=== PATIENT | male | born 1955 | race Two or more races ===

== ENCOUNTER → 2020-07-18 | Outpatient (CLI) | payer OTHER ==
--- NOTE | 2020-07-18 15:55 | KCIC ---
Study: MRI of the right hand without contrast INDICATION: MCP joint sprain of the thumb. COMPARISON: 07/03/2020 radiographs TECHNIQUE: Multiplanar MR imaging of the right hand performed without contrast. FINDINGS: Bones/cartilage: No acute fracture involving the thumb or rest of the partially assessed hand. Alignm ent is within normal limits. No advanced arthrosis. Ligaments: Mild soft tissue edema of the thumb beginning along the dorsum of the distal thumb metacar pal and extending up to the distal phalanx. There are no findings to suggest a high-grade or full-thi ckness tear of the radial or ulnar collateral ligaments associated with the thumb MCP or IP joints. T he ligaments are seen to attach to the volar plate. No tendon displacement to suggest sagittal band o r martha rupture. Musculotendinous: Mildly heterogeneous signal of the flexor pollicis longus at the distal thumb metac arpal to the MCP joint could represent mild strain given minimal adjacent edema, image 20 series 7. N o focal tear of the extensor pollicis longus with a mild irregularity along the radial margin of the tendon at the level of the proximal phalanx, image 16 series 7, favored related to a small vessel or nerve when correlating with the axial T1 sequence. Miscellaneous: No joint effusion. IMPRESSION: 1. Mildly edematous soft tissues of the thumb but there is no evidence for a partial or full-thickne ss tear of the radial or ulnar collateral ligaments associated with the MCP or IP joints. 2. The flexor and extensor tendons of the thumb remained normally located. Possible mild strain of t he flexor pollicis longus at the distal thumb metacarpal up to the MCP joint given faint adjacent ragini ma such as on image 20 series 7. 3. No acute osseous abnormality. Electronically signed by: TITO JIMENEZ MD (07/18/2020 3:53 PM) [id number]
== END ==
LOC: KCIC MRI 12:37
PROVIDERS: ATTEND Physician Assistant
DX: S63.641A Sprain of metacarpophalangeal joint of right thumb, initial encounter (principal); X58.XXXA Exposure to other specified factors, initial encounter; Y93.89 Activity, other specified; Y92.89 Other specified places as the place of occurrence of the external cause; Y99.8 Other external cause status
CPT/HCPCS: 73218